=== PATIENT | male | born 1945 ===

== ENCOUNTER 2017-09-20 07:50 | Day surgery (SDC) | payer MEDICARE, MEDICAID ==
[~2017-09-20] VITALS: Ht 160 cm; Wt 75.7 kg
[2017-09-20] VITALS (8 sets, daily range): BP systolic 104–136; BP diastolic 66–85
[~2017-09-20 07:50] MED LIST: AMBIEN5 MG ORAL; ASPIRIN-LOW81 MG ORAL; PLAVIX75 MG ORAL; PROSCAR5 MG ORAL; SYNTHROID112 MCG ORAL; TAMSULOSIN HCL0.4 MG ORAL; TOPROL XL25 MG ORAL
[2017-09-20] MEDS ORDERED: LR 1000ml ONE (09:00)
[2017-09-20] MEDS ORDERED: Lidocaine 1% MPF 10mg/ml 5ml ONE (09:00)
[2017-09-20] MEDS ORDERED: Propofol 200mg/20ml IV ONE (09:00)
--- NOTE | 2017-09-20 09:22 | Short Stay Surgery H&P ---
History of Present Illness History of Present Illness Chief Complaint History of coloon polyp/GI bleeding, melena HPI Elyse Orozco is a 72 year old male who was admitted on for Abdominal Pain , Gerd/GI bleeding per recent history Patient History Allergies: Coded Allergies: No Known Allergies (Unverified , 09/20/17) PAST MEDICAL HISTORY: (1) Hypothyroid (2) Hyperlipidemia Medication History Scheduled Aspirin (Aspirin EC), 81 MG ORAL DAILY, (Reported) Clopidogrel Bisulfate* (Plavix*), 75 MG ORAL DAILY, (Reported) Finasteride* (Proscar*), 5 MG ORAL DAILY, (Reported) Levothyroxine Sodium* (Synthroid*), 112 MCG ORAL DAILY, (Reported) Metoprolol Succinate* (Toprol Xl*), 25 MG ORAL DAILY, (Reported) Tamsulosin Hcl (Tamsulosin Hcl*), 0.4 MG ORAL BEDTIME, (Reported) Scheduled PRN Zolpidem Tartrate* (Ambien*), 2.5 MG ORAL BEDTIME PRN for Insomnia, (Reported) Review of Systems Cardiovascular: Reports: no symptoms Respiratory: Reports: no symptoms Skeletal: Reports: no symptoms Gastrointestinal: Reports: gastro esophageal reflux disease Genitourinary: Reports: BPH Neurologic: Reports: no symptoms Endocrine: Reports: thyroid Hematologic: Reports: no symptoms Physical Exam Vital Signs Last Vital Signs Date Time Temp Pulse Resp B/P (MAP) Pulse Ox O2 Delivery O2 Flow Rate FiO2 09/20/17 08:36 97.9 65 18 136/85 96 Room Air 97.9 Skin: normal HENT: normal Heart: normal Lungs: normal Abdomen: abnormal Extremities: normal Genitourinary: normal Plan Plan of Care Upper and lower GI endoscopies Preop Interventions None. Summary of Findings See the reports Attestation Are the patient's medical conditions optimized for surgery? Attestation Response: yes GULSHAN BEY Sep 20, 2017 09:22
--- NOTE | 2017-09-20 09:23 | Pre-Procedure Note/Attestation ---
Pre-Procedure Note/Attestation Complete Prior to Procedure Planned Procedure: left Procedure Narrative: Endoscopic exam of the upper and the lower GI tract Indications for Procedure Pre-Operative Diagnosis: R/O colon polyps/peptic ulcer gastritis. Attestation I attest that I discussed the nature of the procedure; its benefits; risks and complications; and alternatives (and the risks and benefits of such alternatives ), prior to the procedure, with the patient (or the patient's legal data entry representative). I attest that, if there was a reasonable possibility of needing a blood transfusion, the patient (or the patient's legal data entry representative) was given the [place] [facility] [employer] [facility] standardized written summary, pursuant to the Jesus Morrow Blood Safety Act ([place] Health and Safety Code # 1645, as amended). I attest that I re-evaluated the patient just prior to the surgery and that there has been no change in the patient's H&P, except as documented below: MAIDASAID Sep 20, 2017 09:23
[2017-09-20] MEDS ORDERED: LR 1000ml 1,000 ML IVLG SCH (09:31)
--- NOTE | 2017-09-20 09:31 | Anethesia Preoperative Eval ---
Anesthesia Pre-op PMH/ROS General Date of Evaluation: Sep 20, 2017 Time of Evaluation: 09:16 Anesthesiologist: josh ASA Score: ASA 4 Mallampati Score Class I : Soft palate, uvula, fauces, pillars visible Class II: Soft palate, uvula, fauces visible Class III: Soft palate, base of uvula visible Class IV: Only hard plate visible Mallampati Classification: Class II Surgeon: stacie Diagnosis: gerd, abdominal pain Surgical Procedure: egd/colonoscopy Anesthesia History: none Social History: smoking - nonsmoker Family History: no anesthesia problems Allergies: Coded Allergies: No Known Allergies (Unverified , 09/20/17) Medications: see eMAR Past Medical History Cardiovascular: Reports: HTN, CAD, other - hypercholesterolemia, coronary stent Pulmonary: Reports: EDA - on cpap, other Gastrointestinal/Genitourinary: Reports: other - bph Endocrine: Reports: hypothyroidism Anesthesia Pre-op Phys. Exam Physician Exam Last Vital Signs Date Time Temp Pulse Resp B/P (MAP) Pulse Ox O2 Delivery O2 Flow Rate FiO2 09/20/17 08:36 97.9 65 18 136/85 96 Room Air 97.9 Constitutional: NAD Neurologic: CN 2-12 intact Cardiovascular: RRR Respiratory: CTA Gastrointestinal: S/NT/ND Airway Exam Mallampati Score: Class II MO: limited Neck: supple TMD: 2fb ROM: limited Teeth: intact Anesthesia Pre-op A/P Risk Assessment & Plan Assessment: asa4 Plan: mac Status Change Before Surgery: No Pre-Antibiotics Drug: FELICIA Ellis Sep 20, 2017 09:31
[2017-09-20] MEDS ORDERED: Midazolam 2mg/2ml Inj IVP PRN (09:45)
[2017-09-20] MEDS ORDERED: Atropine Inj 1mg/10ml Syr IV PRN (09:45)
[2017-09-20] MEDS ORDERED: fentaNYL 100 mcg/2 mL IV PRN (09:45)
[2017-09-20] MEDS ORDERED: DiphenhydrAMINE 50mg/ml Inj IVP PRN (09:45)
--- NOTE | 2017-09-20 10:05 | Endoscopy Procedure Note ---
Endoscopy Procedure Note General Indication for Procedure: Abdominal pains, history of colon polyps/ GI bleeding , Gerds Procedures Performed: EGD - Small Hital hernia, R/O jose antonio esophagus otherwise normal UGI endoscopy, biopsy was done per random from gastric body with esophageal brushing., colonoscopy - Gernalized diverticulosi of the colon with significant diverticula in the left descending colon otherwise normal findings with no polyps found. Specimen: yes Pt Tolerated Procedure Well: Yes Estimated Blood Loss: none Anesthesia Anesthesiologist: Dr. Zaidi Anesthesia: moderate sedation Medications Medication Given: see anesthesia record Inserted Devices Implant(s) used?: No Quality Quality of Bowel Preparation: Good Did scope reach the cecum?: Yes Was there any complications?: No GI Core Measures 50 yrs or older w/o bx or poly: Yes 10yrs. F/U not recommended: Yes 10 yrs. F/U needed: Yes 18 years or older w/prev. colo: Yes <3yrs. since last colonoscopy: No Med reason:<3 yrs.: System Reason:<3 yrs.: GULSHAN BEY Sep 20, 2017 10:05
--- NOTE | 2017-09-20 10:06 | Discharge Instructions ---
Discharge Instructions Discharge Instructions Follow up with: See the doctor in the office after two weeks For Congestive Heart Failure Reminder Report to your physician any weight gain of 5 pounds or more in one week. GULSHAN BEY Sep 20, 2017 10:05
--- NOTE | 2017-09-20 10:24 | Immediate Post-Op Evaluation ---
Immediate Post-Op Evalulation Immediate Post-Op Evalulation Procedure: egd/colonoscopy Date of Evaluation: Sep 20, 2017 Time of Evaluation: 10:23 IV Fluids: 350ml lr Blood Products: none Estimated Blood Loss: negligible Blood Pressure Systolic: 110 Blood Pressure Diastolic: 68 Pulse Rate: 63 Respiratory Rate: 18 O2 Sat by Pulse Oximetry: 99 Temperature (Fahrenheit): 98.7 Pain Score (1-10): 0 Nausea: No Vomiting: No Complications none Patient Status: awake, reacts, patent Hydration Status: adequate Drug: FELICIA Ellis Sep 20, 2017 10:23
--- NOTE | 2017-09-20 10:25 | 48 Hour Post Anesthesia Eval ---
Post Anesthesia Evaluation Procedure: egd/colonoscopy Date of Evaluation: Sep 20, 2017 Time of Evaluation: 10:25 Blood Pressure Systolic: 104 0: 65 Pulse Rate: 65 Respiratory Rate: 18 Temperature (Fahrenheit): 98.7 O2 Sat by Pulse Oximetry: 99 Airway: patent Nausea: No Vomiting: No Pain Intensity: 0 Hydration Status: adequate Cardiopulmonary Status: stable Mental Status/LOC: patient returned to baseline Post-Anesthesia Complications: none Follow-up care needed: N/A FELICIA CROSS Sep 20, 2017 10:25
--- NOTE | 2017-09-20 18:15 | Procedure Note ---
DATE OF PROCEDURE: 09/20/2017 PROCEDURE: Esophagogastroduodenoscopy with biopsy and brushing of esophagus. SURGEON: Arleen Pacheco M.D. PREOPERATIVE DIAGNOSES: History of gastroesophageal reflux, gastrointestinal bleeding, and black stools. POSTOPERATIVE DIAGNOSES: 1. A small hiatal hernia. 2. Possible exudative process over the esophagus, rule out Cari esophagus. Biopsy from the stomach and brushing from esophagus was done, otherwise, normal study. MEDICATION USED: Per Dr. Zaidi, anesthesiologist. INSTRUMENT: GIF Olympus upper GI video endoscope. DESCRIPTION OF PROCEDURE: The patient, after arriving endoscopy unit, was told about risks and benefits of the procedure, which he accepted and signed informed consent. At this time, he was put on the left lateral decubitus position. After adequate IV sedation, the scope was gently passed through the cricopharyngeal area. Examination of the throat and larynx did not reveal any abnormality. At this time, the scope was advanced into the esophagus all the way down to the gastroesophageal junction. There were areas of small pieces of exudative-like material over the esophagus, which raised the possibility of underlying Cari; therefore, brushing was done and the specimen was sent to the laboratory. The scope was then passed through a small hiatal hernia, which did not reveal any evidence of Duron's or inflammatory process. Finally, the scope was guided into the stomach. Gastric cavity was distended with insufflation of air. Gradually, the areas of the fundus and the body and the antrum were examined, which revealed to be completely normal and no evidence of abnormality such as inflammatory process, ulceration, stricture, polypoid tumor was found. One random biopsy from gastric body obtained and subsequently, the scope was passed through normal looking pylorus. First and second portions of duodenum were also found to be normal. Finally, the scope was pulled back into the stomach. A retroflexion maneuver was applied and the area of the gastroesophageal junction was examined in a closer fashion, which looked normal. At this time, the scope was pulled out and the procedure was terminated. The patient tolerated the procedure well. Arleen Pacheco M.D. DR: Derrell JOB#: [id number] CC:
--- NOTE | 2017-09-20 18:30 | Operative Note - Dictated ---
DATE OF OPERATION: 09/20/2017 PREOPERATIVE DIAGNOSES: History of colon polyps and possible gastrointestinal bleeding. POSTOPERATIVE DIAGNOSIS: Severe diverticulosis up to the colon, particularly of the left descending colon, otherwise, complete normal study up to the base of the cecum as examined. PROCEDURE: Total colonoscopy. MEDICATION USED: Per Dr. Zaidi, anesthesiologist. INSTRUMENT: GIF Olympus video colonoscope. DESCRIPTION OF PROCEDURE: The patient, after arriving in endoscopy unit, was told about risks and benefits of the procedure, which he accepted and signed the informed consent. At this time, he was put on the left lateral decubitus position. After adequate IV sedation, the scope was gently passed through the anal area and careful examination of this section revealed no abnormality. There were no tumors or polyps or major hemorrhoids. At this time, the scope was passed through normal looking rectum, introduced into the somewhat redundant left colon, which revealed significant numbers of diverticular lesions; however, there was no any evidence of inflammatory process or stricture. The left descending colon revealed numerous diverticular lesions, but looked completely normal otherwise. Finally, the scope reached to the splenic flexure. From there, it was guided into the transverse colon, hepatic flexure, and finally to the right colon all the way to the base of the cecum. There was evidence of more scattered diverticular lesions, but not as much as the left side. Finally after reaching to the base of the cecum within 7 minutes, the scope was gradually pulled out and reexamination of the colon did not reveal any other pathology. The colon cleanup was fair. The patient tolerated the procedure well and left the endoscopy room in a good condition. Said Lisa Pacheco DR: TIFFANIE JOB#: [id number] CC:
== END 2017-09-20 11:15 | disposition home or self-care (01) ==
LOC: EDBD 07:50 → GAS 07:50
DX: K21.9 Gastro-esophageal reflux disease without esophagitis (principal); K44.9 Diaphragmatic hernia without obstruction or gangrene; K57.90 Diverticulosis of intestine, part unspecified, without perforation or abscess without bleeding; E78.5 Hyperlipidemia, unspecified; E03.9 Hypothyroidism, unspecified; Z79.82 Long term (current) use of aspirin; I11.9 Hypertensive heart disease without heart failure; E78.00 Pure hypercholesterolemia, unspecified; Z95.5 Presence of coronary angioplasty implant and graft; G47.33 Obstructive sleep apnea (adult) (pediatric)
CPT/HCPCS: 43239; 45378; J2704; J7120; 94003; 94150